=== PATIENT | male | born 2000 | race Caucasian/White ===

== ENCOUNTER 2018-01-21 14:00 | Emergency (ER) | payer OTHER ==
[~2018-01-21] VITALS: Ht 170.2 cm; Wt 68.0 kg
[2018-01-21 14:30] VITALS: BP 118/67
== END 2018-01-21 21:00 | disposition left against medical advice (07) ==
LOC: ER 15:09
DX: Z53.21 Procedure and treatment not carried out due to patient leaving prior to being seen by health care provider (principal)

== ENCOUNTER 2021-04-13 18:22 | Emergency (ER) | payer OTHER ==
[~2021-04-13] VITALS: Ht 167.6 cm; Wt 64.0 kg
[2021-04-13 18:27] VITALS: BP 110/80
== END 2021-04-13 19:55 | disposition left against medical advice (07) ==
LOC: ER 18:22
DX: Z53.21 Procedure and treatment not carried out due to patient leaving prior to being seen by health care provider (principal); I49.9 Cardiac arrhythmia, unspecified
CPT/HCPCS: 93005

== ENCOUNTER 2022-02-04 16:39 | Emergency (ER) | payer OTHER ==
[~2022-02-04] VITALS: Ht 165.1 cm; Wt 65.0 kg
[2022-02-04] MEDS ORDERED: ONDANSETRON HCL 4MG/2ML INJ IV STA (17:16)
[2022-02-04] MEDS ORDERED: KETOROLAC 30MG/ML VIAL IV STA (17:16)
[2022-02-04] MEDS ORDERED: SODIUM CHLORIDE 0.9% 1,000 ML IV ONE (17:30)
[2022-02-04 17:34] VITALS: BP 119/65
[2022-02-04 17:41] LABS: HEMATOCRIT. 44.9 % (42.0-52.0); HEMOGLOBIN. 15.7 g/dL (14.0-18.0); MEAN CORPUSCULAR HEMOGLOBIN 31.7 pg (28.0-32.0); MEAN CORPUSCULAR VOLUME 90.5 fL (80.0-94.0); MEAN PLATELET VOLUME 8.4 fl (7.4-10.4); PLATELET 201 x1000/uL (130-400); RED BLOOD CELL COUNT 4.96 mill/uL (4.7-6.1); RED CELL DISTRIBUTION WIDTH 12.2 % (11.6-14.6)
[2022-02-04 17:42] LABS: CLARITY URINE CLEAR (CLEAR); COLOR URINE DARK YELLOW (YELLOW); KETONES URINE TRACE (NEGATIVE); LEUKOCYTE ESTERASE URINE NEGATIVE (NEGATIVE); NITRITE URINE NEGATIVE (NEGATIVE); OCCULT BLOOD URINE NEGATIVE (NEGATIVE); PH URINE 6.5 (4.5-8.0); PROTEIN URINE 1+ (NEGATIVE); SPECIFIC GRAVITY URINE 1.038 (1.005-1.030)
[2022-02-04 17:47] LABS: CHLORIDE 102 mEq/L (98-107)
[2022-02-04 18:17] LABS: PLATELET ESTIMATE NORMAL
[2022-02-04] MEDS ORDERED: ONDA4TAB11 PO (20:02)
[2022-02-04] MEDS ORDERED: IMOD MT (20:02)
== END 2022-02-04 20:13 | disposition home or self-care (01) ==
LOC: ER 16:39
DX: R10.13 Epigastric pain (principal); R19.7 Diarrhea, unspecified; R11.10 Vomiting, unspecified; F12.10 Cannabis abuse, uncomplicated
CPT/HCPCS: 36415; 80053; 81003; 83690; 85025; 96361; 96374; 96375; 99284; J1885; J2405; J7030